=== PATIENT | male | born 1955 | race Caucasian/White ===

== ENCOUNTER → 2020-05-10 08:37 | Outpatient (BNVA) | payer BC, MEDICARE, SELFPAY | PROVIDERS: Family Provider Nurse Practitioner Family; PCP Nurse Practitioner Family; Visit Provider Internal Medicine Cardiovascular Disease | DX: E78.2 Mixed hyperlipidemia (principal) | CPT/HCPCS: 80048; 80061; 80076; 83721 ==

== ENCOUNTER 2020-06-20 11:59 | Outpatient (CLI) | payer BC, MEDICARE, SELFPAY ==
--- NOTE | 2020-06-20 12:14 | XRR_ITS ---
PROCEDURE INFORMATION: Exam: XR Cervical Spine, 2 or 3 Views Exam date and time: 06/20/2020 12:15 PM Age: 65 years old Clinical indication: Neck pain and other: Shoulder pain; Patient HX: Neck and shoulder pain for years; Additional info: Nerve irritation TECHNIQUE: Imaging protocol: XR of the cervical spine, 2 or 3 views. COMPARISON: No relevant prior studies available. FINDINGS: Vertebrae: Diminished cervical lordosis, degenerative change, and ligamentous calcification. Anatomic alignment. Soft tissues: Partial obscuration of C7 vertebral body by overlying soft tissues. XR/XR cervical spine 3V* [id number] IMPRESSION: Diminished cervical lordosis, degenerative change, and ligamentous calcification.
== END 2020-06-20 12:00 | disposition home or self-care (01) ==
LOC: RAD 12:09
PROVIDERS: PCP Nurse Practitioner Family; Visit Provider Family Medicine
DX: M54.2 Cervicalgia (principal)
CPT/HCPCS: 72040

== ENCOUNTER → 2021-01-09 08:48 | Outpatient (BNVA) | payer BC, MEDICARE, SELFPAY | PROVIDERS: PCP Family Medicine; Visit Provider Internal Medicine Cardiovascular Disease | DX: E78.2 Mixed hyperlipidemia (principal); E78.5 Hyperlipidemia, unspecified | CPT/HCPCS: 80061; 80076 ==

== ENCOUNTER 2021-05-21 11:36 | Outpatient (CLI) | payer BC, MEDICARE, SELFPAY ==
--- NOTE | 2021-05-21 11:48 | XRR_ITS ---
PROCEDURE INFORMATION: Exam: XR Right Knee Exam date and time: 05/21/2021 11:48 AM Age: 66 years old Clinical indication: Pain; Knee; Right; Additional info: M25.569 - pain in unspecified knee TECHNIQUE: Imaging protocol: XR Right knee. Views: 3 views. COMPARISON: No relevant prior studies available. FINDINGS: Bones/joints: Negative for acute bony abnormality Soft tissues: Normal. XR/XR knee RT 3V* [id number] IMPRESSION: No acute findings.
== END 2021-05-21 11:37 | disposition home or self-care (01) ==
PROVIDERS: PCP Family Medicine; Visit Provider Family Medicine
DX: M25.561 Pain in right knee (principal)
CPT/HCPCS: 73562

== ENCOUNTER 2021-06-06 12:06 | Outpatient (CLI) | payer BC, MEDICARE, SELFPAY ==
--- NOTE | 2021-06-06 13:00 | MR_ITS ---
WS: [id number] MRI RIGHT KNEE HISTORY: M25.561 - Pain in right knee COMPARISON: None available. Anterior cruciate ligament: Markedly thickened edematous ACL. The normal fibers are not identified. Posterior cruciate ligament: Intact. Medial collateral ligament: Intact. Posterior lateral corner structures: Intact. Medial menisci: Abnormal signal throughout the posterior horn. There is intrasubstance degeneration w ith a more complex tear at the free edge. Surface irregularity along the posterior meniscus. Lateral meniscus: Intrasubstance degeneration. There is a superficial defect along the inferior artic ular surface of the posterior horn. Extensor mechanism: Distal quadriceps tendon and patellar tendons are intact. Fluid and soft tissue: Small joint effusion. Small amount of edema surrounding the knee. There is a l arge Reyes's cyst extending over a length of at least 8.5 cm. Osseous and articular structures: Patellofemoral compartment: Normal. Medial compartment: Severe narrowing of the medial compartment. There is joint space narrowing with o steophytes. Marked loss of cartilage involving the weightbearing surface of the femoral condyle and t he tibial plateau. Ovoid nodule measuring 6 mm within the joint space may be a loose body. Focal area of subchondral edema at the base of the medial tibial spine. Lateral compartment: Mild narrowing of the lateral compartment. No marrow edema. There is a very shal low defect within the cartilage along the tibial plateau posteriorly. Elongated fluid collection adjacent to the fibular head and the popliteus muscle. There are several s mall loose bodies within this collection. MR/MR knee RT wo con* [id number] IMPRESSION: 1. Diffusely thickened heterogeneous ACL. Probably due to extensive mucoid deg eneration. Partial tear is are not excluded. 2. Severe narrowing of the medial compartment with loss of cartilage and suspe ct a 6 mm loose body along the joint line. 3. Complex tear at the free edge of the posterior medial meniscus. 4. Focal tear involving the inferior articular surface posterior horn lateral meniscus. Combination of meniscal tear and cartilage injury. 5. Large Reyes's cyst. 6. Popliteus ganglion versus fibular head bursal distention with several small loose bodies contained within the fluid.
== END 2021-06-06 12:07 | disposition home or self-care (01) ==
LOC: RADSHAW 12:10
PROVIDERS: PCP Family Medicine; Visit Provider Family Medicine
DX: M71.21 Synovial cyst of popliteal space [Baker], right knee (principal); S83.271A Complex tear of lateral meniscus, current injury, right knee, initial encounter; X58.XXXA Exposure to other specified factors, initial encounter
CPT/HCPCS: 73721

== ENCOUNTER → 2021-06-26 08:30 | Outpatient (BNVA) | payer BC, MEDICARE, SELFPAY | PROVIDERS: PCP Family Medicine; Referring Provider Family Medicine; Visit Provider Specialist | DX: M25.561 Pain in right knee (principal) | CPT/HCPCS: 73560; 73565 ==

== ENCOUNTER → 2021-07-22 13:19 | Outpatient (BNVA) | payer BC, MEDICARE, SELFPAY | PROVIDERS: PCP Family Medicine; Visit Provider Specialist | DX: M25.561 Pain in right knee (principal); M17.11 Unilateral primary osteoarthritis, right knee; E78.5 Hyperlipidemia, unspecified; E78.2 Mixed hyperlipidemia | CPT/HCPCS: 73560; 73565; 80061 ==

== ENCOUNTER → 2021-09-23 10:21 | Outpatient (BNVA) | payer BC, MEDICARE, SELFPAY | PROVIDERS: PCP Family Medicine; Visit Provider Internal Medicine Cardiovascular Disease | DX: E78.2 Mixed hyperlipidemia (principal); I10 Essential (primary) hypertension | CPT/HCPCS: 80061; 80076 ==

== ENCOUNTER → 2022-09-16 11:09 | Outpatient (BNVA) | payer BC, MEDICARE, SELFPAY | PROVIDERS: PCP Family Medicine; Visit Provider Nurse Practitioner Family | DX: R50.9 Fever, unspecified (principal); R05.9 Cough, unspecified | CPT/HCPCS: 87400; 87426 ==